=== PATIENT | male | born 1970 | race Two or more races ===

== ENCOUNTER → 2025-01-03 | Outpatient (CLI) | payer OTHER, SELFPAY ==
--- NOTE | 2025-01-03 11:00 | XR_ITS ---
Examination: Abdomen sonogram, complete Date and time of exam: January 03, 2025 1055 hrs. Indications: Right flank pain beginning 2 weeks ago. Technique: Multiple real-time grayscale transabdominal sonographic images of the abdomen have been obtained. Findings: Negative for gallstones Gallbladder wall 0.4 cm Common bile duct 0.3 cm Pancreatic head 2.9 cm Aorta not enlarged Liver 15.1 cm fatty infiltration Normal hepatopedal portal venous flow Patent IVC Right kidney 10.3 cm renal cortex 2.0 cm Left kidney 10.5 cm cortex 2.3 cm Spleen 8.7 cm Impression: Borderline thickening gallbladder wall, consider HIDA scan follow-up
== END | disposition home or self-care (01) ==
LOC: CDIM 10:32
PROVIDERS: PCP Physician Assistant; Referring Provider Physician Assistant; Visit Provider Physician Assistant
DX: K82.8 Other specified diseases of gallbladder (principal)
CPT/HCPCS: 76700